=== PATIENT | female | born 1965 | race Caucasian/White ===

== ENCOUNTER 2021-02-04 06:34 | Day surgery (SDC) | payer BC, SELFPAY ==
[2021-02-04] VITALS (7 sets, daily range): BP systolic 116–169; BP diastolic 56–77; PULSE 73–98; RESP 16–101; TEMP 36.4–37.2; O2SAT 95–98; BMI 42.1
--- NOTE | 2021-02-04 | COLBX_PTH ---
PATIENT: ELOY JUARES LOC: EN U#:[id number] AGE/SX: 55/F ROOM: RE02/04/[address]: Dr. Leonardo Arriaga MD : 1965 BED: DIS: 02/04/2021 SPEC #: [id number] RECD: 02/04/21 12:04 STATUS: BARRY RERegina #: [id number] RANDY: 02/04/21 00:[address]: Leonardo Arriaga DEPT: SURGICAL PATHOLOGY RECD BY: Philip Vázquez ENTERED: 02/04/21 12:38 SP TYPE: COLON BX OTHR DR: Bella Jackson, OUTSOLE BEVELER-C Tissues: SPLENIC FLEXURE Procedures: Surgery Specimen Level IV HEADER OPERATION: Colonoscopy (MAC) PRE-OP DIAGNOSIS: Positive colorectal cancer screening using Cologuard test TISSUE SUBMITTED: Splenic flexure polyp MICROSCOPIC DIAGNOSIS Colonic polyp at hepatic flexure, biopsy: Tubular adenoma. AM:shiv 02/07/2021 MICROSCOPIC DESCRIPTION Slides are reviewed. GROSS DESCRIPTION Received in fixative is one container labeled with the patient's name and designated splenic flexure polyp. The specimen consists of a rodrigez-pink polyp measuring 0.7 x 0.5 x 0.4 cm. The specimen is totally submitted in one cassette. / SJ:shiv 02/04/21 TC:5 CPT: 80540
[2021-02-04 07:03] LABS: Internal QC Validated? YES +Cl - CLEAR BKGD; Pregnancy, Urine Negative Negative
[2021-02-04] MEDS: Lactated Ringers 1,000 ML 100 ML IV (07:07)
--- NOTE | 2021-02-04 07:10 | HP.PCM_ITS ---
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: No Is patient in pain?: No Allergies No Known Allergies Allergy (Verified 11/15/20 08:25) Medications ascorbic acid (vitamin C) 1,000 mg tablet 1 g PO Q6H 11/15/20 [History Confirmed 11/15/20] cetirizine 10 mg tablet 10 mg PO DAILY 11/15/20 [History Confirmed 11/15/20] cholecalciferol (vitamin D3) 125 mcg (5,000 unit) capsule 125 mcg PO DAILY 11/15/20 [History Confirmed 11/15/20] fluticasone propionate 50 mcg/actuation nasal spray,suspension 1 spray INTRANASAL DAILY PRN 11/15/20 [History Confirmed 11/15/20] ytdrxebh-gyx-wogo-FA-Ca carb-vit K 18 mg iron-400 mcg-500 mg tablet 1 tab PO DAILY 11/15/20 [History Confirmed 11/15/20] Is last menstrual period known: No Post menopausal: Yes Patient : No PFSH Medical History Back pain Environmental allergies Surgical History History of appendectomy History of mandibular surgery Family History Father Cancer Mother CVA (cerebral vascular accident) Kidney disease Hypertension HPI HPI HPI: ELOY JUARES, is a 55 F who presents to the office today for positive Cologuard test. The patient does not report any abdominal pain or blood in her stool. The patient has never had a colonoscopy. She has no family history of colon cancer. ROS General General: No weight change, appetite, fatigue, colon cancer, breast cancer or weakness HEENT HEENT: No difficulty swallowing, eye injury, eye surgery, swollen glands or hoarseness Endo Endocrine: No thyroid disease, diabetes mellitus, thyroid cancer, Hair loss, heat intolerance or cold intolerance Musc Musculoskeletal: Yes back problems; No arthritis, rheumatoid arthritis, gout or joint pain Cardio Cardiovascular: No murmur, pacemaker, heart disease, atrial fibrillation, high blood pressure, heart attack, heart stent, palpitations, shortness of breat with exertion or chest pain Psych Psychiatric: No depression, anxiety or hearing voices Resp Respiratory: No shortness of breath, No sleep apnea, No cough, No COPD, No asth ma, No emphysema and No wheezing Gastro Gastrointestinal: No abdominal pain, No nausea or vomiting, No diarrhea, No constipation, No blood in stool, No acid reflux, No hemorrhoids, No ulcers, No gallbladder problem and No black,tarry stools French Hematologic: No blood thinners, No blood disorders, No bleeding, No anemia and No blood clots Neuro Neurologic: No weakness Exam Const General: cooperative Orientation: alert and oriented x3 HENMT Head: normal to inspection Neck Neck: normal visual inspection and full ROM Chest Chest palpation & inspection: normal inspection of the chest Resp Effort & Inspection: normal respiratory effort Auscultation: clear to auscultation bilaterally Cardio Rate: regular rate Rhythm: regular rhythm GI Inspection: non-distended Palpation: soft and nontender Skin General: no rashes or lesions noted Neuro General: patient alert and patient oriented x3 Extrem General: full ROM Psych Appearance: grossly normal Mental Status: mental status grossly normal Assessment and Plan Assessment and Plan (1) Positive colorectal cancer screening using Cologuard test: Status: Acute Orders: Orders: Colonoscopy Today Plan - Dr. Leonardo Arriaga MD: Patient had a positive Cologuard test and has never had a colonoscopy. I recommend that she undergo colonoscopy. I explained endoscopy in detail to the patient. I explained the risks including but not limited to stroke or heart attack with anesthesia, perforation of the GI tract, bleeding, infection. I explained that any of these could necessitate further emergency surgery. The patient understands and all questions were answered sufficiently. The patient wishes to proceed with procedure.
--- NOTE | 2021-02-04 08:26 | OP.COLON_ITS ---
Patient Name: Marga Houston Procedure Date: 02/04/2021 7:41 AM Date of : 1965 Age: 55 Procedure: Colonoscopy Indications: Positive Cologuard test Providers: Leonardo Arriaga MD Medicines: Monitored Anesthesia Care Patient Profile: This is a 55 year old female. Refer to note in patient chart for documentation of history and physical. Last Colonoscopy: none. The patient's first colonoscopy is today. Complications: No immediate complications. Procedure: Pre-Anesthesia Assessment: - Prior to the procedure, a History and Physical was performed, and patient medications and allergies were reviewed. The patient's tolerance of previous anesthesia was also reviewed. The risks and benefits of the procedure and the sedation options and risks were discussed with the patient. All questions were answered, and informed consent was obtained. Prior Anticoagulants: The patient has taken no previous anticoagulant or antiplatelet agents. After reviewing the risks and benefits, the patient was deemed in satisfactory condition to undergo the procedure. After I obtained informed consent, the scope was passed under direct vision. Throughout the procedure, the patient's blood pressure, pulse, and oxygen saturations were monitored continuously. The pediatric colonoscope was introduced through the anus and advanced to the cecum, identified by appendiceal orifice and ileocecal valve. The colonoscopy was performed without difficulty. The patient tolerated the procedure well. The quality of the bowel preparation was good. Scope In: 7:47:24 AM Scope Withdrawal Time 0 hours 6 minutes 1 second Scope Out: 8:13:43 AM Total Procedure Duration Time 0 hours 26 minutes 19 seconds Findings: A polyp was found in the splenic flexure. The polyp was removed with a hot snare. Resection and retrieval were complete. The exam was otherwise without abnormality on direct and retroflexion views. Impression: - One polyp at the splenic flexure, removed with a hot snare. Resected and retrieved. - The examination was otherwise normal on direct and retroflexion views. Recommendation: - Discharge patient to home. - Resume previous diet. - Continue present medications. - Await pathology results. - Repeat colonoscopy in 5 years for surveillance based on pathology results. Procedure Code(s): --- Professional --- 62057, Colonoscopy, flexible; with removal of tumor(s), polyp(s), or other lesion(s) by snare technique Diagnosis Code(s): --- Professional --- D12.3, Benign neoplasm of transverse colon (hepatic flexure or splenic flexure) R19.5, Other fecal abnormalities CPT copyright 2017 [employer]. All rights reserved. The codes documented in this report are preliminary and upon training specialist review may be revised to meet current compliance requirements. Leonardo Arriaga MD 02/04/2021 8:25:42 AM This report has been signed electronically. Number of Addenda: 0 Note Initiated On: 02/04/2021 7:41 AM
--- NOTE | 2021-02-04 08:26 | OP.CCLET_ITS ---
02/04/2021 Patric Meier Re : Colonoscopy procedure for Marga Houston Dear Renetta This procedure was performed on Thursday, February 04, 2021. My impressions and recommendations are as follows: Impressions : - One polyp at the splenic flexure, removed with a hot snare. Resected and retrieved. - The examination was otherwise normal on direct and retroflexion views. Recommendations : - Discharge patient to home. - Resume previous diet. - Continue present medications. - Await pathology results. - Repeat colonoscopy in 5 years for surveillance based on pathology results. My findings are described in the full procedure note, which is enclosed. If I can be of further assistance, please feel free to contact me at Doctor phone number(s): , Work: . Sincerely, Leonardo Arriaga MD 02/04/2021 8:25:42 AM This report has been signed electronically.
== END 2021-02-04 09:23 | disposition home or self-care (01) ==
LOC: EN 06:39 → AC 06:39
PROVIDERS: Anesthesiology; PCP Nurse Practitioner Family; Referring Provider Nurse Practitioner Family; Visit Provider Surgery
PROC: 0DJD8ZZ Inspection of Lower Intestinal Tract, Via Natural or Artificial Opening Endoscopic (ICD-10-PCS; CPT 45378; principal; 2021-02-04 07:40)
DX: D12.3 Benign neoplasm of transverse colon (principal); R19.5 Other fecal abnormalities; Z79.899 Other long term (current) drug therapy
CPT/HCPCS: 45385; 81025; 88305; J7120; J2405